=== PATIENT | male | born 1995 | race Caucasian/White ===

== ENCOUNTER 2016-08-06 01:17 | Emergency (ER) | payer BC ==
[~2016-08-06] VITALS: Ht 195.6 cm; Wt 71.8 kg
[~2016-08-06 01:17] MED LIST: OMEG10007 PO
[2016-08-06 01:21] VITALS: TEMP 36.5; Ht 195.6 cm; Wt 71.8 kg
[2016-08-06] MEDS ORDERED: SODIUM CHLORIDE 0.9% 1000ML 1,000 ML IV STA ×2 (01:30)
[2016-08-06] MEDS ORDERED: LORAZEPAM 2 MG/ML 1 ML VIAL IV STA (01:30)
[2016-08-06 01:35] VITALS: O2SAT 97
[2016-08-06 01:51] LABS: BASO % 0.2 %; BASO ABS # 0.02 K/uL (0-0.2); COMPLETE YES; EOS % 1.8 %; HEMATOCRIT 41.9 % (42-52); IG% 0.2 %; LYMPH % 38.2 %; LYMPH ABS # 3.53 K/uL (1.2-3.4); MEAN CELL VOLUME 85.7 fL (80-100); MEAN CORPUSCULAR HEMOGLOBIN 31.7 pg (25-34); MEAN PLATELET VOLUME 8.7 fL (7.4-10.4); MONO % 10.1 %; NEUT % 49.5 %; PLATELET COUNT 251 K/uL (130-400); RED BLOOD COUNT 4.89 M/uL (4.7-6.1); WHITE BLOOD COUNT 9.24 K/uL (4.8-10.8)
[2016-08-06 02:11] LABS: ALT/SGPT 23 U/L (12-78); AST/SGOT 24 U/L (15-37); BLOOD UREA NITROGEN 10 mg/dl (7-18); BUN/CREATININE RATIO 9.9 (10-20); CALCIUM 9.7 mg/dl (8.5-10.1); CARBON DIOXIDE 23 mmol/L (21-32); CHLORIDE 101 mmol/L (98-107); GLUCOSE 108 mg/dl (70-99); POTASSIUM 3.1 mmol/L (3.5-5.1); SODIUM 138 mmol/L (136-145)
[2016-08-06 02:17] LABS: ALKALINE PHOSPHATASE 83 U/L (45-117)
[2016-08-06] MEDS ORDERED: POTASSIUM CHLORIDE 10 MEQ TABCR PO STA (02:18)
--- NOTE | 2016-08-06 02:26 | EMERGENCY ROOM VISIT NOTE ---
History First contact with patient: 01:27 Chief Complaint: RESPIRATORY PROBLEMS Stated Complaint: SHAKY,FAINT,TROUBLE BREATHING. Nursing Triage Summary: patient reports hour ago having chest pain,tingling,dizziness,patient reports ETOH tonight History of Present Illness The patient is a 20 year old male who presents to the Emergency Room with complaints of chest pain with breathing fast and feeling tingling in extremities for the past hour while watching a movie. Patient states he was drinking earlier today but nothing recently. Patient states he feels quite anxious. Patient describes the pain as tight, ranging in severity 4 out of 10. Nothing makes it better or worse. Patient denies dyspnea, fever, chills, cough, congestion, abdominal pain, leg pain or swelling. No drugs. No injury to the area. Review of Systems See HPI for pertinent positives & negatives. A total of 10 systems reviewed and were otherwise negative. Past Medical/Surgical History Medical Problems: (1) Constipation (2) Diffuse abdominal pain (3) Fall due to ice or snow (4) Laceration of right hand (5) Musculature underdevelopment (6) No chronic problems Family History No pertinent family history Social History Smoking Status: Current Every Day Smoker Alcohol Use: occasionally Drug Use: none Marital Status: single Housing Status: lives with roommate Occupation Status: [employer] student Current/Historical Medications No Active Prescriptions or Reported Meds Allergies Coded Allergies: No Known Allergies (Unverified , 08/06/16) Physical Exam Vital Signs Date Time Temp Pulse Resp B/P Pulse Ox O2 Delivery O2 Flow Rate FiO2 08/06/16 01:35 97 Room Air 08/06/16 01:35 68 16 159/96 97 Room Air 08/06/16 01:33 95 08/06/16 01:21 36.5 91 18 154/64 97 Room Air Physical Exam VITALS: Vitals are noted on the nurse's note and reviewed by myself. Vital signs stable. GENERAL: Pleasant male anxious-appearing breathing fast, in no acute distress, nondiaphoretic, well-developed well-nourished. SKIN: The skin was without rashes, erythema, edema, or bruising. There is no tenting of the skin. Capillary reflex less than 2 seconds. HEAD: Normocephalic atraumatic. EARS: External auditory canals clear, tympanic membranes pearly castle without erythema or effusion bilaterally. EYES: Pupils equal round and reactive to light and accommodation. Conjunctivae without injection, sclerae without icterus. Extraocular movements intact. NOSE: Patent, turbinates without inflammation or discharge. No sinus tenderness. MOUTH: Mucous membranes moist. Pharynx without erythema or exudate. Uvula midline. Airway patent. Tongue does not deviate. NECK: Supple without nuchal rigidity. No lymphadenopathy. No thyromegaly. Cervical spine is nontender. No JVD. HEART: Regular rate and rhythm without murmurs gallops or rubs. Chest nontender to palpation LUNGS: Clear to auscultation bilaterally without wheezes, rales or rhonchi. No dullness to percussion. No retractions or accessory muscle use. ABDOMEN: Positive bowel sounds x 4. Normal tympanic percussion. Soft, nontender, without masses or organomegaly. Fallon sign negative. No guarding or rebound tenderness. MUSCULOSKELETAL: No muscle atrophy, erythema, or edema noted. NEURO: Patient was alert and oriented to person place and time. Normal sensation to light and sharp touch. No focal neurological deficits. Medical Decision & Procedures Laboratory Results 08/06/16 01:35 Red Blood Count 4.89, Mean Corpuscular Volume 85.7, Mean Corpuscular Hemoglobin 31.7, Mean Corpuscular Hemoglobin Concent 37.0, Mean Platelet Volume 8.7, Neutrophils (%) (Auto) 49.5, Lymphocytes (%) (Auto) 38.2, Monocytes (%) (Auto) 10.1, Eosinophils (%) (Auto) 1.8, Basophils (%) (Auto) 0.2, Neutrophils # (Auto ) 4.57, Lymphocytes # (Auto) 3.53, Monocytes # (Auto) 0.93, Eosinophils # (Auto ) 0.17, Basophils # (Auto) 0.02 08/06/16 01:35 Test 08/06/16 01:35 White Blood Count 9.24 K/uL (4.8-10.8) Red Blood Count 4.89 M/uL (4.7-6.1) Hemoglobin 15.5 g/dL (14.0-18.0) Hematocrit 41.9 % (42-52) Mean Corpuscular Volume 85.7 fL (80-100) Mean Corpuscular Hemoglobin 31.7 pg (25-34) Mean Corpuscular Hemoglobin Concent 37.0 g/dl (32-36) Platelet Count 251 K/uL (130-400) Mean Platelet Volume 8.7 fL (7.4-10.4) Neutrophils (%) (Auto) 49.5 % Lymphocytes (%) (Auto) 38.2 % Monocytes (%) (Auto) 10.1 % Eosinophils (%) (Auto) 1.8 % Basophils (%) (Auto) 0.2 % Neutrophils # (Auto) 4.57 K/uL (1.4-6.5) Lymphocytes # (Auto) 3.53 K/uL (1.2-3.4) Monocytes # (Auto) 0.93 K/uL (0.11-0.59) Eosinophils # (Auto) 0.17 K/uL (0-0.5) Basophils # (Auto) 0.02 K/uL (0-0.2) RDW Standard Deviation 42.0 fL (36.4-46.3) RDW Coefficient of Variation 13.3 % (11.5-14.5) Immature Granulocyte % (Auto) 0.2 % Immature Granulocyte # (Auto) 0.02 K/uL (0.00-0.02) Anion Gap 14.0 mmol/L (3-11) Est Creatinine Clear Calc Drug Dose 118.7 ml/min Estimated GFR () 124.1 Estimated GFR (Non- 107.1 BUN/Creatinine Ratio 9.9 (10-20) Calcium Level 9.7 mg/dl (8.5-10.1) Total Bilirubin 0.5 mg/dl (0.2-1) Direct Bilirubin 0.1 mg/dl (0-0.2) Aspartate Amino Transf (AST/SGOT) 24 U/L (15-37) Alanine Aminotransferase (ALT/SGPT) 23 U/L (12-78) Alkaline Phosphatase 83 U/L (45-117) Troponin I < 0.015 ng/ml (0-0.045) Total Protein 8.9 gm/dl (6.4-8.2) Albumin 4.6 gm/dl (3.4-5.0) Lipase 147 U/L (73-393) Medications Administered Medications (Trade) Dose Ordered Sig/[place] Route Start Time Stop Time Status Last Admin Dose Admin Sodium Chloride 1,000 ml @ 999 mls/hr Q1H1M STAT IV 4/9/17 01:30 08/06/16 02:30 08/06/16 01:44 999 MLS/HR Sodium Chloride (Nss 1000ml) 1,000 ml @ 125 mls/hr Q8H STAT IV 08/06/16 01:30 08/06/16 09:29 08/06/16 01:30 125 MLS/HR Lorazepam (Ativan Inj) 1 mg NOW STAT IV 08/06/16 01:30 08/06/16 01:32 DC 08/06/16 01:45 1 MG ED Course Prior records/ancillary studies reviewed. Triage Nursing notes reviewed. Additional history obtained from friend. The patient's history was concerning for chest pain. Differential diagnosis: Etiologies such as panic attack, cardiac ischemia, aortic dissection, pulmonary embolism, pneumonia, pneumothorax, musculoskeletal, infections, pericarditis, myocarditis, esophageal rupture, gastrointestinal, as well as others were entertained. Physical examination: As above. ER treatment provided: Ativan On reassessment the patient felt better. Diagnostic interpretation by me: The electrocardiogram was negative for pathologic change. Normal sinus, incomplete right bundle branch block, rate of 80, no acute ST-T wave changes. Impression incomplete right bundle branch block interpreted by myself The labs revealed negative troponin, hypokalemia and this is replaced orally Imaging studies: Chest x-ray with no acute consolidation, pneumothorax or free air per my interpretation Exam and history seem consistent with panic attack. Patient felt much better after being medicated as above. Negative troponin. Unremarkable workup as above. He was advised to rest, decrease stress and to follow-up health services in a few days or here in the ER sooner for chest pain, difficulty breathing, anxiety, worsening signs or symptoms or as needed. By the evaluation outlined above emergent etiologies such as cardiac ischemia, aortic dissection, pulmonary embolism, pneumonia, pneumothorax, infections, pericarditis, myocarditis, gastrointestinal, as well as others were deemed relatively unlikely. The pt informed about the findings as listed above. All questions were answered and pleased with the treatment. Return instructions were outlined and the patient was discharged in stable condition. Referral: The patient was referred back to primary care physician for follow-up in 2 to 3 days for a recheck of the current condition. case reviewed with my Attending Medical Decision As above Impression Primary Impression: Panic attack Additional Impression: Non-cardiac chest pain Departure Information Dispostion Home / Self-Care Condition GOOD Prescriptions No Active Prescriptions or Reported Meds Referrals No Doctor, Assigned (PCP) Patient Instructions My [facility] Additional Instructions DO NOT drive, drink alcohol, operate machinery, or perform dangerous activities today. You were given medications in the ER that can affect your ability to safely function or operate a vehicle. Decrease stress. Try to relax. Ibuprofen(Motrin, Advil) may be used for fever or pain. Use 600mg every six hours as needed. Take with food. Avoid using more than 2400mg in a 24 hour period. Do not use 2400mg per day for more than three consecutive days without physician direction. Prolonged inappropriate use can lead to stomach upset or ulcers. (AND/OR) Acetaminophen(Tylenol) may be used for fever or pain. Use 1000mg every six hours as needed. Avoid using more than 3000mg in a 24 hour period. Rest and drink plenty of fluids as tolerated. Continue current medications. Avoid strenuous activities and anything that worsens your pain. Resume normal activities once your symptoms resolve. Return to the ER immediately for worsening or persistent chest pain, abdominal pain, vomiting, fevers, chest pains, difficulty breathing, worsening of your condition, or as needed. Follow up with your primary physician in 2-3 days for a recheck of your current condition. Problem Qualifiers
[2016-08-06 02:36] VITALS: BP 162/84; PULSE 65; O2SAT 100
--- NOTE | 2016-08-06 07:54 | DIAGNOSTIC IMAGING REPORT ---
CHEST ONE VIEW PORTABLE CLINICAL HISTORY: Chest pain and shortness of breath. COMPARISON STUDY: Chest radiograph April 11, 2015. FINDINGS: Lung volumes are normal. The lungs are clear. There is no pneumothorax or pleural effusion. Cardiac size is normal. Mediastinal contours are normal. There is no evidence of pulmonary edema. IMPRESSION: No acute cardiopulmonary findings. Electronically signed by: Collins Asencio M.D. 08/06/2016 7:52 AM Dictated Date/Time: 08/06/2016 7:51 AM
== END 2016-08-06 02:37 | disposition home or self-care (01) ==
LOC: C.EDB 01:18
DX: F41.0 Panic disorder [episodic paroxysmal anxiety] (principal); R06.89 Other abnormalities of breathing; R42 Dizziness and giddiness; R07.89 Other chest pain; F17.210 Nicotine dependence, cigarettes, uncomplicated